=== PATIENT | male | born 1940 | race Caucasian/White ===

== ENCOUNTER 2017-01-21 06:08 | Day surgery (SDC) | payer MEDICARE ==
[2017-01-21] MEDS ORDERED: Ketamine HCl 50 MG/ML IV ONE (06:09)
[2017-01-21] MEDS ORDERED: DIPRIVAN 200 MG/20 ML IV ONE (06:09)
[2017-01-21] MEDS ORDERED: Lactated Ringers 1,000 ML IV ONE (06:26)
[2017-01-21] MEDS ORDERED: Lactated Ringers 1,000 ML IV SCH (06:30)
[2017-01-21 09:57] VITALS: BP 117/66; PULSE 65; O2SAT 94
--- NOTE | 2017-01-21 10:20 | OP ---
SURGERY DATE/TIME: 01/21/2017809 PREOPERATIVE DIAGNOSIS: Screening exam. POSTOPERATIVE DIAGNOSIS: Sigmoid diverticulosis and small sigmoid colon polyp. PROCEDURE: Colonoscopy with biopsy. SURGEON: Dr. Ocasio. ANESTHESIA: MAC. Medications given by anesthesia department. HISTORY: The patient is a 76 year-old white male patient presenting now for screening colonoscopy. He was appraised of the risks of the procedure including the risk of perforation, phlebitis, untoward reaction to medication, bleeding and missed lesions. The patient verbalized his understanding and desired to have the procedure performed. DESCRIPTION OF PROCEDURE: The patient was given the medications by the anesthesia department. He had continuous pulse oximetry, ECG monitoring, intermittent blood pressure monitoring and tidal CO2 monitoring during the examination. He was placed in the left lateral decubitus position. A digital rectal examination was performed and revealed normal anal sphincter tone, no masses and normal prostate. The flexible Olympus pediatric colonoscope was used to intubate the rectum. A view of the colon was developed sequentially to the cecum. Upon insertion and withdrawal, including a retroflex view in the rectum, there was noted scattered sigmoid diverticula and one small polyp. Using cold biopsy technique and two passes of biopsy forceps completely destroying the lesion. The scope was removed from the patient who tolerated the procedure well and was sent back to OP recovery in good condition. The prep was noted to be good.
== END 2017-01-21 10:37 | disposition home or self-care (01) ==
LOC: SDC 06:08
PROVIDERS: ATTEND Family Medicine
PROC: 0DBN8ZX Excision of Sigmoid Colon, Via Natural or Artificial Opening Endoscopic, Diagnostic (ICD-10-PCS; principal; 2017-01-21)
DX: K63.5 Polyp of colon (principal); J44.9 Chronic obstructive pulmonary disease, unspecified; Z12.11 Encounter for screening for malignant neoplasm of colon; E11.9 Type 2 diabetes mellitus without complications; E03.9 Hypothyroidism, unspecified; K57.30 Diverticulosis of large intestine without perforation or abscess without bleeding
CPT/HCPCS: 00810; 36415; 82962; 99100; J2704